=== PATIENT | male | born 1945 | race Caucasian/White ===

== ENCOUNTER 2021-01-25 04:59 | Emergency (ER) | payer MEDICARE ==
[~2021-01-25] VITALS: Ht 172.7 cm; Wt 82.1 kg
--- NOTE | 2021-01-25 05:17 | NUR ---
bib ems. pt's woke up to find pt stiff and shaking, pt also lost control of urine. pt was a/ox1 on scene per ems. pt a/ox4 at this time, slow to answer, denies headaches, dizziness, n/v. pt had incontinent urine episode as well. per the incident lasted a couple min. sensation intact, able to move all extremities. med student at bedside. pt on all monitors, seizure precations in place
[2021-01-25] MEDS ORDERED: SODIUM CHLORIDE FLUSH 10ML SYR IVF ONE (05:30)
[2021-01-25 05:50] LABS: BASOPHILS % (AUTO) 0 % (0-1); EOSINOPHILS % (AUTO) 3 % (1-7); LYMPHOCYTES % (AUTO) 12 % (22-44); MEAN CORPUSCULAR HGB CONC 33.9 g/dL (33.2-36.2); MEAN PLATELET VOLUME 8.3 fL (7.4-10.4); MONOCYTES % (AUTO) 6 % (2-9); NEUTROPHILS % (AUTO) 78 % (42-75); PLATELET COUNT 152 x10^3/uL (130-400); RED BLOOD COUNT 5.35 x10^6/uL (4.38-5.82); RED CELL DISTRIBUTION WIDTH 13.2 % (9.4-14.8)
[2021-01-25 06:00] LABS: MD NO
[2021-01-25 06:04] LABS: ALANINE AMINOTRANSFERASE 25 U/L (12-78); ALBUMIN 3.4 g/dL (3.4-5.0); ANION GAP 7 mmol/L (5-15); CALCIUM 8.3 mg/dL (8.5-10.1); CHLORIDE 110 mmol/L (98-107); CREATININE 0.81 mg/dL (0.7-1.3)
[2021-01-25 06:06] LABS: ALKALINE PHOSPHATASE 84 U/L (45-117); BILIRUBIN,TOTAL 0.4 mg/dL (0.2-1.0); TOTAL PROTEIN 6.5 g/dL (6.4-8.2)
--- NOTE | 2021-01-25 06:08 | NUR ---
PT BACK FROM CT
[2021-01-25 06:12] LABS: MICROSCOPIC AUTO
[2021-01-25 06:20] LABS: AMPHETAMINE SCREEN, URINE Negative (Negative); BARBITURATE SCREEN, URINE Negative (Negative); BENZODIAZEPINE SCREEN, URINE Negative (Negative); CANNABINOID SCREEN, URINE Negative (Negative); COCAINE SCREEN, URINE Negative (Negative); METHADONE SCREEN, URINE Negative (Negative); OPIATE SCREEN, URINE Negative (Negative)
--- NOTE | 2021-01-25 06:50 | NUR ---
SBAR REPORT RECEIVED. PT RESTING COMFORTABLY, WANTING TO LEAVE. EXPLAINED JUST WAITING FOR CT TO BE READ.
[2021-01-25 08:40] VITALS: BP 112/54
== END 2021-01-25 08:43 | disposition home or self-care (01) ==
LOC: ED 05:25
DX: R56.9 Unspecified convulsions (principal); R41.82 Altered mental status, unspecified; R20.2 Paresthesia of skin; R51.9 Headache, unspecified; I45.10 Unspecified right bundle-branch block
CPT/HCPCS: 36415; 70450; 80053; 80307; 80320; 81001; 85025; 93005; 99285; G0480